=== PATIENT | male | born 1985 | race Caucasian/White ===

== ENCOUNTER 2025-06-30 13:54 | Emergency (ER) | payer MEDICAID, OTHER ==
[~2025-06-30] VITALS: Ht 170.2 cm; Wt 71.4 kg
[2025-06-30 14:50] LABS: CALCIUM, SERUM 9.2 mg/dL (8.5-10.1); CREATININE 1.2 mg/dL (0.6-1.3); SODIUM SERUM 141.0 mmol/L (136-145); UREA NITROGEN, BLOOD 23.0 mg/dL (7-18)
[2025-06-30 14:55] LABS: PLATELET COUNT (AUTO) 218 K/uL (150-450); RED BLOOD CELL COUNT(AUTO) 5.43 MIL/uL (4.5-6.0); RED CELL DISTRIBUTION WIDTH 13.3 % (11.5-15.0); WHITE BLOOD COUNT (AUTO) 10.6 K/uL (4.3-11.0)
[2025-06-30 15:07] LABS: ASPARTATE AMINOTRANSFERASE 11.0 U/L (15-37); TOTAL PROTEIN, SERUM 7.5 g/dL (6.4-8.2)
[2025-06-30 17:28] VITALS: BP 125/73; TEMP 98.2; O2SAT 96
== END 2025-06-30 17:29 | disposition home or self-care (01) ==
LOC: ER 13:54
DX: G45.9 Transient cerebral ischemic attack, unspecified (principal)
CPT/HCPCS: 36415; 70450-TC; 80048-TC; 80053-TC; 83735-TC; 84439-TC; 84443-TC; 84484-TC; 85025-TC